=== PATIENT | female | born 1985 | race Two or more races ===

== ENCOUNTER 2021-10-31 14:16 | Outpatient (CLI) | payer OTHER | END 2021-10-31 15:16 | disposition home or self-care (01) | LOC: PRENATAL 14:16 | PROVIDERS: ATTEND Obstetrics & Gynecology Maternal & Fetal Medicine | DX: O36.80X0 Pregnancy with inconclusive fetal viability, not applicable or unspecified (principal) ==

== ENCOUNTER 2021-12-22 07:54 | Outpatient (CLI) | payer OTHER | END 2021-12-22 09:06 | disposition home or self-care (01) | LOC: PRENATAL 07:54 | PROVIDERS: ATTEND Obstetrics & Gynecology Maternal & Fetal Medicine | DX: O35.0XX0 Maternal care for (suspected) central nervous system malformation in fetus, not applicable or unspecified (principal); O35.3XX0 Maternal care for (suspected) damage to fetus from viral disease in mother, not applicable or unspecified; O09.529 Supervision of elderly multigravida, unspecified trimester; O34.219 Maternal care for unspecified type scar from previous cesarean delivery; Z3A.20 20 weeks gestation of pregnancy ==

== ENCOUNTER 2021-12-28 15:46 | Outpatient (CLI) | payer OTHER ==
[~2021-12-28] VITALS: Ht 157.5 cm; Wt 72.6 kg
[2021-12-28] MEDS ORDERED: PRENATAL CAPLE1 EAC1 (15:55)
== END 2021-12-28 19:45 | disposition home or self-care (01) ==
LOC: OBS/DEL 15:46
PROVIDERS: ATTEND Obstetrics & Gynecology
DX: O26.852 Spotting complicating pregnancy, second trimester (principal); Z3A.21 21 weeks gestation of pregnancy; Z88.0 Allergy status to penicillin; Z20.822 Contact with and (suspected) exposure to COVID-19

== ENCOUNTER 2022-04-28 08:30 | Inpatient (IN) | payer OTHER ==
[~2022-04-28] VITALS: Ht 160 cm; Wt 3.6 kg
[~2022-04-28 08:30] MED LIST: PRENATAL CAPLE1 EAC1
== END 2022-05-04 14:43 | disposition home or self-care (01) | DRG 788 ==
LOC: OB/GYN 05-01 08:30 → O/R 05-01 18:08 → OB/GYN 05-01 18:08
PROVIDERS: ADMIT Obstetrics & Gynecology; ATTEND Obstetrics & Gynecology
PROC: 4A1HXCZ Monitoring of Products of Conception, Cardiac Rate, External Approach (ICD-10-PCS; 2022-05-01)
PROC: 10D00Z1 Extraction of Products of Conception, Low, Open Approach (ICD-10-PCS; principal; 2022-05-01 16:00)
DX: O34.211 Maternal care for low transverse scar from previous cesarean delivery (principal); Z3A.38 38 weeks gestation of pregnancy; Z37.0 Single live birth; Z20.822 Contact with and (suspected) exposure to COVID-19